=== PATIENT | female | born 1995 | race African-American/Black ===

== ENCOUNTER 2019-01-24 10:28 | Emergency (ER) | payer OTHER ==
[~2019-01-24] VITALS: Ht 162.6 cm; Wt 66.9 kg
[2019-01-24] MEDS ORDERED: KETOROLAC 30 MG/ML VIAL (J1885) IV ONE (11:45)
[2019-01-24] MEDS ORDERED: ONDANSETRON 4MG/2ML VIAL (J2405) IV ONE (11:45)
[2019-01-24] MEDS ORDERED: NS 1,000 ML IV ONE (11:45)
[2019-01-24 12:21] LABS: BASO % 0.5 % (0.0-1.0); EOS # 0.1 10^3/uL (0.0-0.5); HEMATOCRIT 38.8 % (36.0-47.0); HEMOGLOBIN 12.9 g/dl (12.0-15.5); LYMPH # 1.9 10^3/uL (1.5-5.0); LYMPH % 24.5 % (24.0-44.0); MEAN CORPUSCULAR HEMOGLOBIN 31.4 pg (27.0-33.0); MEAN CORPUSCULAR HGB CONC 33.2 g/dl (32.0-36.5); MEAN CORPUSCULAR VOLUME 94.4 fl (80.0-96.0); MONO # 0.4 10^3/uL (0.0-0.8); MONO % 5.4 % (0.0-5.0); NEUTROPHILS # 5.4 10^3/uL (1.5-8.5); NEUTROPHILS % 68.3 % (36.0-66.0); PLATELET COUNT, AUTOMATED 209 10^3/uL (150-450); RED BLOOD COUNT 4.11 10^6/uL (4.00-5.40); WHITE BLOOD COUNT 7.8 10^3/uL (4.0-10.0)
[2019-01-24 12:48] LABS: ALBUMIN 3.7 GM/DL (3.2-5.2); BILIRUBIN,DIRECT 0.1 MG/DL (0.0-0.2); BILIRUBIN,TOTAL 0.3 MG/DL (0.2-1.0); TOTAL PROTEIN 7.2 GM/DL (6.4-8.2)
[2019-01-24] MEDS ORDERED: ISOVUE-370 76% 100ML VIAL (Q9967) As Ordered ONE (13:00)
--- NOTE | 2019-01-24 13:56 | REP ---
CT ABDOMEN AND PELVIS WITH IV CONTRAST: TECHNIQUE: Axial contrast enhanced images from the lung bases to the pubic symphysis using 100 mL Isovue 370 intravenous contrast material with multiplanar reformations. Visualized lung bases demonstrate no infiltrate. The liver, gallbladder, spleen, adrenals, pancreas and kidneys are unremarkable. There is no hydronephrosis bilaterally. There is no abdominal aortic aneurysm. There is no adenopathy or free air. No bowel thickening is seen. There is no evidence of appendicitis. There is mild diastasis of the rectus muscles. There may be a cyst of the right ovary approximately 2.8 cm in maximum diameter. There is mild free fluid in the pelvis. The urinary bladder is not well distended and not well evaluated. IMPRESSION: Appendix is normal. There is no appendicitis. There may be a cyst of the right ovary 2.8 cm in maximum diameter. There is mild free fluid in the pelvis. No other acute finding. Electronically Signed by Prasad Jiang MD 01/29/2019 08:59 A
[2019-01-24 15:16] VITALS: BP 110/58
--- NOTE | 2019-01-24 15:25 | REP ---
PELVIS ULTRASOUND: Real-time sonographic evaluation of the pelvis is performed utilizing transabdominal and endovaginal technique. The bladder measures 5.0 x 3.3 x 7.7 cm. The uterus measures 7.2 x 5.5 x 7.7 cm. The endometrial thickness is 11 mm. The right ovary measures 3.1 x 2.0 x 2.9 cm and left ovary 3.0 x 2.0 x 2.2 cm. There is no ovarian torsion, blood flow is seen in each ovary with duplex Doppler evaluation. There is bilateral free fluid. There is a paraovarian cyst in the right adnexa separate from the right ovary 2.0 x 1.5 x 2.3 cm. There is a paraovarian cystic structure in the left adnexa as well 1.9 x 1.1 x 1.5 cm. IMPRESSION: Small paraovarian cyst is seen bilaterally. Moderate free fluid. No torsion. Electronically Signed by Prasad Jiang MD 01/29/2019 09:03 A
== END 2019-01-24 15:53 | disposition home or self-care (01) ==
LOC: M ED 10:28
DX: N83.201 Unspecified ovarian cyst, right side (principal); N83.202 Unspecified ovarian cyst, left side
CPT/HCPCS: 74177; 76830; 76856; 80047; 80076; 81001; 83605; 83690; 84702; 85025; 93976; 96374; 96375; 99284; J1885; J2405; Q9967

== ENCOUNTER → 2020-10-30 | Outpatient (CLI) | payer OTHER ==
--- NOTE | 2020-10-30 14:21 | REP ---
INDICATION: SAGAR DIAG MAMMO/L BRST LUMP/NIPPLE DISCHARGE/FAM HX. COMPARISON: None TECHNIQUE: Diagnostic digital bilateral mammography was obtained in the CC and MLO projections using both 2D and 3D modalities. Diagnostic magnified spot compression views of the left breast were obtained upper-outer quadrant over the region of a clinically palpable mass. In addition, diagnostic ultrasonography was obtained at the 3 o'clock position over the palpable area. Shear wave elastography was also obtained. The area of interest was indicated by the technologist placing triangular-shaped markers on the skin. FINDINGS: The breasts are symmetric in size and shape. Markedly dense heterogenous somewhat nodular fibroglandular elements are seen bilaterally to such is significant degree that the sensitivity of the mammogram in detecting cancer is significantly decreased. In the upper outer quadrant of the left breast there is a smoothly marginated reniform shaped nodular density which on the CC view has a notched lucent center. Diagnostic digital magnified spot compression views of this region confirms its presence and having 100% distinct margins. Diagnostic ultrasonography of the clinical region of interest shows a smoothly marginated solid nodule which is reniform in shape and has a vascular fatty maris measuring approximately 0.7 x 0.4 by 0.7 cm. Shear wave elastography was performed on this and shows very low kPa values. No other suspicious areas are seen in either breast. The Volpara volumetric breast density pattern is D IMPRESSION: BIRADS/ACR category 2 mammogram and benign left breast ultrasound showing an intramammary lymph node. There is no mammographic evidence or ultrasonographic evidence of malignant alteration of either breast. Since only 1 of the suspected 2 palpable areas shows a benign nodule without identification of a 2nd nodule mammographically or ultrasonographically surgical consultation may be necessary. In addition, due to the patient's high Tyrer Cuzick score and significant family history of breast cancer along with the patient's breast density score of D, bilateral breast MRI is recommended at this time. This patient's Tyrer-Cuzick lifetime breast cancer risk assessment score is 26.5%. This mammogram was interpreted with the aid of an FDA-approved computer-aided detection system. The patient states she had a clinical breast exam in July 2020. The patient letter being requested is M2. RECOMMENDATION: Bilateral breast MRI is recommended <Electronically signed by Angel Roldan > 10/30/20 0629
== END ==
LOC: M WHC 10:56
PROVIDERS: ATTEND Physician Assistant
DX: Z12.31 Encounter for screening mammogram for malignant neoplasm of breast (principal)